=== PATIENT | female | born 1995 | race Caucasian/White ===

== ENCOUNTER 2019-01-19 15:26 | Emergency (ER) | payer BC ==
[~2019-01-19] VITALS: Ht 165.1 cm; Wt 83.9 kg
[2019-01-19] MEDS ORDERED: NORTREL 1-35 21 EACH PO (16:20)
[2019-01-19] MEDS ORDERED: SINGULAIR 10 MG10 MG PO (16:21)
[2019-01-19 16:59] LABS: ABSOLUTE NEUTROPHILS 8.3 thou/uL (1.4-8.2); BASOPHILS 0.4 % (0.0-2.0); EOSINOPHILS 0.8 % (0.0-3.0); HEMATOCRIT 39.9 % (37.0-47.0); HEMOGLOBIN 13.1 gm/dL (12.0-15.0); LYMPHOCYTES 17.2 % (24.0-44.0); MCH 24.6 pg (26.0-34.0); MCHC 32.9 g/dL (28.0-37.0); MCV 74.7 fL (80.0-100.0); MONOCYTES 9.2 % (1.0-8.0); PLATELET COUNT 317 thou/uL (150-400); POLYS 72.4 % (36.0-66.0); RBC 5.34 mil/uL (4.20-5.00); RDW 14.2 % (10.5-14.5); WBC 11.5 thou/uL (4.0-11.0)
[2019-01-19 17:03] LABS: CALCIUM 9.8 mg/dL (8.5-10.1); POTASSIUM 3.3 mmol/L (3.5-5.1)
[2019-01-19] MEDS ORDERED: GUAIFEN-CODEINE10 ML PO (18:12)
[2019-01-19] MEDS ORDERED: ZPAK PO (18:12)
[2019-01-19 19:06] VITALS: BP 132/72
--- NOTE | 2019-01-20 08:24 | EKG ---
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 01/20/19 0823 1557 [id number] Kuldip Baker MD, FACC /EPI
== END 2019-01-19 19:14 | disposition home or self-care (01) ==
LOC: ER 15:26
PROVIDERS: Emergency Medicine
DX: J18.9 Pneumonia, unspecified organism (principal); R00.0 Tachycardia, unspecified; R42 Dizziness and giddiness